=== PATIENT | female | born 1960 | race Caucasian/White ===

== ENCOUNTER 2016-06-14 08:38 | Emergency (ER) | payer OTHER ==
[~2016-06-14 08:38] MED LIST: CALC-79 PO; MULT-56 PO; MV-M1TAB20 PO; PHYT100T PO; SIMV40TA5 PO
[2016-06-14 08:51] VITALS: BP 147/84; PULSE 81; RESP 16; O2SAT 100
[2016-06-14 09:00] LABS: BASOPHILS % (AUTO) 0.9 % (0-3); EOSINOPHILS % (AUTO) 0.7 % (0-5); MONOCYTES % (AUTO) 6.1 % (4-12); Mean Corpuscular Hemoglobin 30.4 pg (27.0-35.0); NEUTROPHILS % (AUTO) 72.2 % (40-74); Platelet Count 273 bil/L (150-400)
[2016-06-14 09:28] LABS: Magnesium 2.1 mg/dL (1.6-2.6)
--- NOTE | 2016-06-14 09:30 | DRSVH ---
PROCEDURE: X-RAY CHEST ONE VIEW, PORTABLE ([id number]) INDICATIONS: dysrithmia TECHNIQUE: One view of the chest was acquired. COMPARISON: None. FINDINGS: Surgical changes and devices: None. Lungs and pleura: No pleural effusions or pneumothorax. Lungs are clear. Mediastinum: Mediastinal contours appear normal. Heart size is normal. Bones and chest wall: No suspicious bony lesions. Overlying soft tissues appear unremarkable. IMPRESSION: No acute cardiopulmonary disease. Dictated by: Taylor Akbar M.D. on 06/14/2016 at 9:28 Approved by: Taylor Akbar M.D. on 06/14/2016 at 9:28
--- NOTE | 2016-06-14 09:30 | ED.REPORT ---
HPI-Dizziness / Weakness Date of Service Jun 14, 2016 ED Provider: Arnold Ornelas MD 55 year old female with a hx of hypertension who presents to the ED via EMS due to a sudden onset of dizziness approximately 1.5 hours ago. The patient woke up this morning normal. 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 She felt that she was listing to the left. Her symptoms improved after she was able to sit down. She also reported associated symptoms of nausea, palpitations (described as racing) and decreased coordination (change in depth perception). She states that this change in depth perception has been an ongoing issue for approximately a year, but was worsened today. Pt denies headache, changes in mentation, slurred speech, weakness, spinning sensation, tinnitus, diplopia, blurred vision and dysuria. Pt has a remote history of vertigo, but this is different. Nursing Notes Stated Complaint: DIZZINESS Chief Complaint: General Complaint Nursing Notes Reviewed: Yes ([employer], [employer] not recociled) Allergies: Coded Allergies: No Known Drug Allergies (Verified Allergy, Unknown, 11/29/14) Scheduled Simvastatin (Simvastatin) 40 Mg Tablet 40 MG PO HS Scheduled PRN Meclizine (Bonine) 25 Mg Tab.chew 25 MG PO TID PRN PRN For Dizziness Miscellaneous Medications Calcium Carb/Vit D3/Minerals (Calcium +D & Minerals Chew Tab) 1 Each Tab.chew 1 EACH PO Multivitamin (Daily Vitamin) 1 Each Tablet 1 EACH PO Mv-Mn/Iron/FA/Herbal Cmplx#190 (Vitamin D3 Complete Caplet) 1 Each Tablet 1 EACH PO Phytonadione (Vitamin K) 100 Mcg Tablet 100 MCG PO General Time Seen by MD: 09:24 Chief Complaint Dizzy Hx Obtained From: Patient, EMS Arrived By: Ambulance Onset Occurred: 1 - 4 hours ago Symptom Duration: Since onset Location: : No pain Severity: Current: No pain currently Associated with: Denies: Syncope, Tinnitus, Visual disturbance Exacerbated by: Positional (standing) Risk Factors TPA Administration/Criteria Stroke Thrombolytic Therapy : TPA Considered: No (No measurable deficit on stroke scale, no definite diagnosis.) NIH Stroke Scale Level of Consciousness: Alert and responsive (0) Ask Month & Age: Both questions right (0) Open/Close Eyes/Hand [employer]: Performs both tasks (0) Horizontal EO Movements: None (0) Visual Zayas: No visual loss (0) Facial Palsy: Normal symmetry (0) Right Arm Motor Drift (10s): No drift 10 sec (0) Left Arm Motor Drift (10s): No drift 10 sec (0) Right Leg Motor Drift (5s): No drift 5 sec (0) Left Leg Motor Drift (5s): No drift 5 sec (0) Limb Ataxia FNF/Heel-Meraz: No ataxia (0) Sensation (Arms/Legs/Face): No sensory loss (0) Language Aphasia: No aphasia, normal (0) Dysarthria: No dysarthria, normal (0) Extinction/Inattention: No exctinct/inattent (0) NIHSS Score: 0 Time NIHSS Performed: 09:45 Date NIHSS Performed: Jun 14, 2016 Past Medical History Past Medical History History of heart murmur History of hypertension Past Surgical History Breast augmentation Jaw surgery Vaginal hysterectomy R arm Multiple cosmetic surgeries Smoking History Former Smoker Review of Systems Basic Review of Systems : No dysuria, No frequency Constitutional: Denies: Fever Eyes: Denies: Blurred bilateral, Diplopia Ears / Nose / Throat: Denies: Ear ringing bilateral, Earache bilateral Respiratory: Denies: Non-productive cough, Shortness of breath Cardiovascular: Denies: Chest pain, Edema GI: Reports: Nausea, Denies: Abdominal pain, Diarrhea, Vomiting Skin: Denies Diaphoresis, Denies Rash Neurologic: Reports: Dizziness, Headache, Lightheaded, Problem walking, Denies: Change LOC, Focal weakness, Slurred speech, Spinning sensation, Unable to speak, Vision change Complete sys rev & neg: except as marked. Physical Exam Initial Vital Signs Vital Signs (First) Date Time Temp Pulse Resp B/P Pulse Ox O2 Delivery O2 Flow Rate FiO2 06/14/16 08:51 36.1 81 16 147/84 100 Room Air Initial VS: Reviewed, Vital signs normal (initiall HTN for EMS) ENT: Mucous membranes moist, Conjunctiva normal, No scleral icterus Neck: Supple, Non-tender, Full range of motion Abdomen / GI: Soft, Non-tender, No guarding, No rebound, No distention Extremities: Vascular intact, Neuro intact, No swelling, No tenderness Skin: Warm, Dry, No cyanosis Psychiatric: Mood/affect normal, Behavior normal, Normal thought content General/Constitutional: Awake, Alert Head / Eyes: Atraumatic, Normocephalic, PERRL Respiratory / Chest: Breath sounds NL, Breath sounds = bilat, No respiratory distress, No rales, No rhonchi, No wheezing Cardiovascular: Heart rate NL, Regular rhythm, Heart sounds NL, No murmurs, Cap refill not delayed, Peripheral circulation NL Neurologic: Oriented X3, Speech NL, No motor deficits, No sensory deficits, CN II - XII intact Mildly positive romberg. Some difficulty with heel to toe walking. Interpretation & Diagnostics Interpretation & Diagnostics: MRI brain without contrast: IMPRESSION: 1. No acute intracranial hemorrhage or infarct. 2. Prominent left choroidal fissure cyst with associated mild T2 hyperintensity compatible mild associated vasogenic edema or gliosis. Finding is of indeterminate clinical significance but may be a source of potential seizure activity. Recommend correlation with clinical history. Dictated by: Julian Nayak M.D. on 06/14/2016 at 11:24 Lab Results Interpretation Result Diagram: 06/14/16 0856 06/14/16 0856 Test 06/14/16 08:56 06/14/16 10:07 White Blood Count 6.9th/mm3 (3.8-10.1) Red Blood Count 4.83mil/mm3 (3.90-5.20) Hemoglobin 14.7g/dL (12.0-15.6) Hematocrit 43.0% (35.0-46.0) Mean Corpuscular Volume 89.0fL (81-100) Mean Corpuscular Hemoglobin 30.4pg (27.0-35.0) Mean Corpuscular Hemoglobin Concent 34.2% (32.0-37.0) Red Cell Distribution Width 13.0% (12.3-15.4) Platelet Count 273bil/L (150-400) Neutrophils (%) (Auto) 72.2% (40-74) Lymphocytes (%) (Auto) 20.0% (14-46) Monocytes (%) (Auto) 6.1% (4-12) Eosinophils (%) (Auto) 0.7% (0-5) Basophils (%) (Auto) 0.9% (0-3) Sodium Level 143mEq/L (134-144) Potassium Level 4.2mEq/L (3.5-5.2) Chloride Level 101mEq/L (97-108) Carbon Dioxide Level 27mmol/L (18-29) Blood Urea Nitrogen 21mg/dL (6-24) Creatinine 0.64mg/dL (0.57-1.00) Estimat Glomerular Filtration Rate 139mL/min (>59) Glucose Level 86mg/dL (60-99) Calcium Level 9.8mg/dL (8.5-10.1) Magnesium Level 2.1mg/dL (1.6-2.6) Total Bilirubin 0.4mg/dL (0.0-1.2) Aspartate Amino Transf (AST/SGOT) 22U/L (0-50) Alanine Aminotransferase (ALT/SGPT) 15U/L (0-32) Alkaline Phosphatase 77U/L (25-150) Troponin T < 0.010ug/L (0.0-0.011) Total Protein 7.2g/dL (6.4-8.4) Albumin 4.5g/dL (3.4-5.0) Hold Urine Received (Received) General Lab Results Interp 1: Labs reviewed ECG Interpretation Time: 09:17 Interpreted by: ED physician Normal ECG Interpretation: Normal rate (73), Normal sinus rhythm X-Ray Chest Interpretation Chest Xray Interpretation: IMPRESSION: No acute cardiopulmonary disease. Dictated by: Taylor Akbar M.D. on 06/14/2016 at 9:28 View: Portable, 1 view Interpretation / Wet Read by: Interpret - Radiologist Re-Eval/Medical Decision Med Decision/Clinical Course This is a 55-year-old female presents to the acute onset of dizziness and near syncope while walking in from school. She also describes periods of ataxia or difficulty leaning to the left, dropping things inappropriately, but has no headaches and no current focal deficits. She has no recent infectious symptoms. The patient prescribed well exam. Focused scale 0 not finding evidence of an overt stroke. But the patient keeps talking about ataxia, and her bowel stings a little off in the department when I walk her and a mildly positive Romberg is present-these are not reflected in the NIH stroke scale. And given this, an MRI was obtained-that was negative. Patient therefore is empirically being treated with meclizine, reassurance is provided. EKG is normal she had no dysrhythmic events, her symptoms are mildly provokable by head movement. The patient discharged in good condition. Source of Hx: Old records, EMS Re-Evaluation/Progress : Time of Eval: 11:45 Patient Status: Condition improved Re-Evaluation/Progress Note: Pt updated of imaging, ECG and labs. Discussed plan for discharge and follow up. All questions addressed. Differential Diagnosis: Positive: Vertigo, peripheral, Negative: Acute coronary syndrome, Anemia, Cerebrovascular accident, Dehydration, Dysrhythmia, Electrolyte disorder, Heat exhaustion, Hyperventilation syndrome, Myocardial infarction, Pulmonary embolus Counseled Regarding: Diagnosis, Lab results, Need for follow-up, When/why to return to ED Patient Discharge & Departure Impression: Primary Impression: Vertigo Disposition: Home Discharge Condition All VS Reviewed: Yes Condition: Improved 1. Your MRI was normal - no signs of a stroke or other dangerous brain condition. 2. Your blood tests and EKG were normal as well. 3. Take it easy - move slowly. 4. You can take meclizine 25mg up to 3 times a day as needed to reduce frequency and severity of symptoms - I recommend taking this today and tomorrow, and then using IF needed. 5. Symptoms for most people last a few days and resolve, although they can reoccur from time to time over the years. Referrals: Lamar Kate MD (PCP) Scribe Attestation Portions of this note were transcribed by Janice Mccain. I, (Dr. Ornelas) personally performed the history, physical exam and medical decision-making; I reviewed and confirmed the accuracy of the information in the transcribed note. Signed by: Janice Mccain. 06/14/2016, 1200 Lamar Kate MD, Matthew F MD Jun 14, 2016 09:30 Janice Mccain Jun 14, 2016 09:49
[2016-06-14 09:33] LABS: TROPONIN T < 0.010 ug/L (0.0-0.011)
[2016-06-14] MEDS ORDERED: 0.9% Sodium Chloride 1,000 ML IV ONE (09:50)
--- NOTE | 2016-06-14 11:26 | DRSVH ---
PROCEDURE: MRI BRAIN WITHOUT CONTRAST ([id number]) INDICATIONS: 55 year-old female with history of hypertension presenting with sudden onset dizziness. TECHNIQUE: Noncontrast axial T1 spin echo, axial T2 fast spin echo, sagittal and axial FLAIR, coronal T2 fast sp in echo, axial gradient echo, axial diffusion and ADC through the brain. COMPARISON: None. FINDINGS: Image quality: Excellent. CSF Spaces: Basal cisterns are patent. No extra-axial fluid collections. Ventricles are normal in size and shape. Brain: Diffusion-weighted images demonstrate no acute infarcts. No intracranial hemorrhage, mass, o r midline shift. Kendall/white matter interface is preserved. There is a thin-walled cyst with CSF sig nal intensity compatible with a choroidal fissure cyst measuring up to 1.3 cm inferior to the left ba luis ganglia. There is a small amount of adjacent T2 hyperintensity extending superiorly within the l eft external capsule. Brainstem appears normal. Normal intravascular flow voids are present. Skull and face: Calvarium has normal marrow signal. Orbits appear normal. Sinuses: Sinuses and mastoids are clear. IMPRESSION: 1. No acute intracranial hemorrhage or infarct. 2. Prominent left choroidal fissure cyst with associated mild T2 hyperintensity compatible mild asso ciated vasogenic edema or gliosis. Finding is of indeterminate clinical significance but may be a so urce of potential seizure activity. Recommend correlation with clinical history. Dictated by: Julian Nayak M.D. on 06/14/2016 at 11:24 Approved by: Julian Nayak M.D. on 06/14/2016 at 11:24
[2016-06-14 11:41] VITALS: BP 159/91; PULSE 65; RESP 16; O2SAT 100
[2016-06-14] MEDS ORDERED: MECL-114 PO (12:05)
[2016-06-14 12:11] VITALS: BP 133/88; PULSE 68; RESP 15; O2SAT 100
== END 2016-06-14 12:12 | disposition home or self-care (01) ==
LOC: EDBD 08:38 → SED 08:38
DX: R42 Dizziness and giddiness (principal); R11.0 Nausea; R00.2 Palpitations; I10 Essential (primary) hypertension; Z87.891 Personal history of nicotine dependence
CPT/HCPCS: 36415; 70551; 71010; 80053; 83735; 84484; 85025; 93005; 96360; 99285; J7030

== ENCOUNTER 2016-07-18 16:02 | Emergency (ER) | payer OTHER ==
[~2016-07-18] VITALS: Ht 162.6 cm; Wt 63.2 kg
[~2016-07-18 16:02] MED LIST changes: +MECL-114 PO
[2016-07-18 16:05] VITALS: BP 160/103; PULSE 71; RESP 16; O2SAT 100
[2016-07-18 17:11] LABS: EOSINOPHILS % (AUTO) 1.2 % (0-5); MONOCYTES % (AUTO) 7.6 % (4-12); Mean Corpuscular Hemoglobin 30.4 pg (27.0-35.0); Mean Corpuscular Volume 88.8 fL (81-100); NEUTROPHILS % (AUTO) 58.7 % (40-74); Platelet Count 242 bil/L (150-400)
[2016-07-18 17:51] LABS: Magnesium 2.3 mg/dL (1.6-2.6)
[2016-07-18 17:52] LABS: TROPONIN T < 0.010 ug/L (0.0-0.011)
--- NOTE | 2016-07-18 17:59 | ED.REPORT ---
HPI-General Illness Date of Service Jul 18, 2016 ED Provider: Patricia Shearer MD Pt is a 55 y/o healthy female presenting to the ED by request of Urgent Care c/ o intermittent dizziness onset many months ago, with a worse episode that occurred 1 day ago. During these episodes, she reports very short periods of palpitations (which she describes as her "heart sneezing", vision change (black spots in vision diffusely), problem walking secondary to balance issues, numbness of the bilateral finger tips, plastic taste in her mouth for 2 years. She came in today because of a "severe episode" which occurred last night. Symptoms are exacerbated by quick movements of the head. She has discussed her balance issues with her PCP who thought it to be age related. Pt denies CP, SOB , diaphoresis, abdominal pain. She has no medical diagnoses but has noticed that she has been hypertensive the past few doctor visits. She takes no medications. Nursing Notes Stated Complaint: POSS STROKE SENT FROM URGENT CARE Chief Complaint: Neuro Symptoms/ Deficits Nursing Notes Reviewed: Yes Allergies: Coded Allergies: No Known Drug Allergies (Verified Allergy, Unknown, 07/18/16) Scheduled Simvastatin (Simvastatin) 40 Mg Tablet 40 MG PO HS Scheduled PRN Meclizine (Bonine) 25 Mg Tab.chew 25 MG PO TID PRN PRN For Dizziness Miscellaneous Medications Calcium Carb/Vit D3/Minerals (Calcium +D & Minerals Chew Tab) 1 Each Tab.chew 1 EACH PO Multivitamin (Daily Vitamin) 1 Each Tablet 1 EACH PO Mv-Mn/Iron/FA/Herbal Cmplx#190 (Vitamin D3 Complete Caplet) 1 Each Tablet 1 EACH PO Phytonadione (Vitamin K) 100 Mcg Tablet 100 MCG PO General Time Seen by MD: 17:58 Chief Complaint Dizziness Hx Obtained From: Patient Arrived By: Walk-in Sudden in Onset?: No Onset Occurred: 1 day ago Symptom Duration: Intermittent Severity: Current: No pain currently Severity: Maximum: No pain Similar Sx Previous: Yes Past Medical History Past Medical History Hx heart murmur Hx of Hypertension Hx of Hyperlipidemia Hx of vertigo Past Surgical History Breast augmentation Jaw surgery Vaginal hysterectomy R arm Multiple cosmetic surgeries Colonoscopy Smoking History Former Smoker Social History Other Social History: Ambulatory Status Independent Review of Systems Full Review of Systems Respiratory: Denies: Shortness of breath Cardiovascular: Reports: Palpitations, Denies: Chest pain GI: Denies: Abdominal pain Skin: Denies Diaphoresis Neurologic: Reports: Dizziness, Numbness, Vision change Complete sys rev & neg: except as marked. Physical Exam Vital Signs Vital Signs Date Time Temp Pulse Resp B/P Pulse Ox O2 Delivery O2 Flow Rate FiO2 07/18/16 18:00 69 19 167/83 99 Room Air 07/18/16 16:05 36.7 71 16 160/103 100 Room Air Initial VS: Reviewed, Vital signs normal Head / Eyes: Atraumatic, Normocephalic, PERRL ENT: Mucous membranes moist, Conjunctiva normal, No scleral icterus Neck: Supple, Full range of motion Respiratory: Breath sounds normal, Clear to auscultation, No respiratory distress Cardiovascular: Regular rate & rhythm, Heart sounds normal, Intact distal pulses Abdomen / GI: Soft, Non-tender, No guarding, No rebound, No distention Extremities: Vascular intact, Neuro intact, No swelling, No tenderness Skin: Warm, Dry, No cyanosis Psychiatric: Mood/affect normal, Behavior normal, Normal thought content Neurologic: Oriented X3, Speech NL, No motor deficits, No sensory deficits, CN II - XII intact, Cerebellar NL, Memory NL Interpretation & Diagnostics Lab Results Interpretation Result Diagram: 07/18/16 1700 07/18/16 1700 Test 07/18/16 17:00 White Blood Count 5.1th/mm3 (3.8-10.1) Red Blood Count 4.48mil/mm3 (3.90-5.20) Hemoglobin 13.6g/dL (12.0-15.6) Hematocrit 39.8% (35.0-46.0) Mean Corpuscular Volume 88.8fL (81-100) Mean Corpuscular Hemoglobin 30.4pg (27.0-35.0) Mean Corpuscular Hemoglobin Concent 34.2% (32.0-37.0) Red Cell Distribution Width 12.8% (12.3-15.4) Platelet Count 242bil/L (150-400) Neutrophils (%) (Auto) 58.7% (40-74) Lymphocytes (%) (Auto) 31.3% (14-46) Monocytes (%) (Auto) 7.6% (4-12) Eosinophils (%) (Auto) 1.2% (0-5) Basophils (%) (Auto) 1.0% (0-3) Sodium Level 141mEq/L (134-144) Potassium Level 4.0mEq/L (3.5-5.2) Chloride Level 103mEq/L (97-108) Carbon Dioxide Level 26mmol/L (18-29) Blood Urea Nitrogen 23mg/dL (6-24) Creatinine 0.52mg/dL (0.57-1.00) Estimat Glomerular Filtration Rate 176mL/min (>59) Glucose Level 99mg/dL (60-99) Calcium Level 9.1mg/dL (8.5-10.1) Magnesium Level 2.3mg/dL (1.6-2.6) Total Bilirubin 0.2mg/dL (0.0-1.2) Aspartate Amino Transf (AST/SGOT) 22U/L (0-50) Alanine Aminotransferase (ALT/SGPT) 18U/L (0-32) Alkaline Phosphatase 71U/L (25-150) Troponin T < 0.010ug/L (0.0-0.011) Total Protein 6.5g/dL (6.4-8.4) Albumin 4.6g/dL (3.4-5.0) Hold Pickard Top Tube Received (Received) ECG Interpretation ECG Interpretation: Sinus rhythm rate 62 T wave inversion in AvR and V1 Time: 18:05 Interpreted by: ED physician Normal ECG Interpretation: No acute ischemic changes, No change from prior ECGs Re-Eval/Medical Decision Med Decision/Clinical Course 55-year-old female with no past medical history here with a constellation of symptoms including vertiginous symptoms, plastic taste in her mouth, fatigue, and palpitations. Differential diagnosis includes but is not limited to electrolyte abnormality versus benign paroxysmal positional vertigo versus anemia versus anxiety. At this time, I do not feel she is having a stroke, nor does she need stroke workup, given the symptoms have been going on for years. She is amenable to discharge with follow-up with her primary care physician. Her labs are unremarkable. Time of Eval: 18:20 Re-Evaluation/Progress Note: Pt rechecked. Informed pt of plan for treatment. Pt understands and agrees with plan for treatment. F/U instructions and RTER warnings given. All questions addressed. Counseled Regarding: Diagnosis, Lab results, Need for follow-up, When/why to return to ED Discharge & Departure Primary Impression: Vertigo Disposition: Home Discharge Condition All VS Reviewed: Yes Condition: Stable Patient Instructions: Vertigo (ED) Additional Instructions: Your symptoms and physical exam today are very reassuring that you are not experiencing a stroke or other life threatening condition at this time. You may be experiencing benign vertigo. Return to the emergency department if you experience one-sided numbness or weakness, severe headache, slurred speech, chest pain, persistent heart palpitations, or other concerning symptoms. If your symptoms persist or are causing you discomfort, you should work with your primary care doctor to further evaluate these symptoms. Referrals: Lamar Kate MD (PCP) Scribe Attestation Portions of this note were transcribed by Paulo Hale. I, Dr. Shearer, personally performed the history, physical exam and medical decision-making; I reviewed and confirmed the accuracy of the information in the transcribed note. Signed by Khloe Chan, 07/18/16 - 1900 copies to: Lamar Kate MD, Rebecca A MD Jul 18, 2016 17:59 PAULO HALE Jul 18, 2016 18:16
[2016-07-18 18:00] VITALS: BP 167/83; PULSE 69; RESP 19; O2SAT 99
== END 2016-07-18 18:45 | disposition home or self-care (01) ==
LOC: SED 16:02
DX: R42 Dizziness and giddiness (principal); R00.2 Palpitations; H53.8 Other visual disturbances; R26.2 Difficulty in walking, not elsewhere classified; R20.0 Anesthesia of skin; R43.2 Parageusia; I10 Essential (primary) hypertension; E78.5 Hyperlipidemia, unspecified; Z87.891 Personal history of nicotine dependence